=== PATIENT | male | born 1975 | race Caucasian/White ===

== ENCOUNTER → 2023-12-28 06:47 | Outpatient (REF) | payer MEDICARE, OTHER, SELFPAY | LOC: PAVMRI 06:47 | PROVIDERS: ATTENDING PHYSICIAN Orthopaedic Surgery; FAMILY PHYSICIAN Family Medicine | DX: M25.532 Pain in left wrist (principal) | CPT/HCPCS: 73221 ==

== ENCOUNTER 2024-01-24 14:53 | Outpatient (RCR) | payer MEDICARE, OTHER, SELFPAY | END 2024-01-24 23:59 | disposition home or self-care (01) | LOC: ROT 14:53 | PROVIDERS: ATTENDING PHYSICIAN Orthopaedic Surgery; FAMILY PHYSICIAN Registered Nurse | DX: S63.8X2D Sprain of other part of left wrist and hand, subsequent encounter (principal); Z73.6 Limitation of activities due to disability | CPT/HCPCS: 97018; 97110; 97166; 97535 ==

== ENCOUNTER 2024-03-01 13:42 | Inpatient (IN) | payer MEDICARE, OTHER, SELFPAY ==
[2024-03-01 11:17] VITALS: BP 130/83
[2024-03-01 12:22] VITALS: BMI 33.7
[2024-03-01 12:24] VITALS: BP 121/88
[2024-03-01 12:34] LABS: % Basophils 0.7 % (0-2); % Immature Granulocytes 0.9 % (0-0.5); % Lymphocytes 26.4 % (20.5-51.1); % Monocytes 9.1 % (1.7-9.3); % Neutrophils 60.9 % (42.2-75.2); Absolute Basophils 0.1 10^3/uL (0-0.2); Absolute Eosinophils 0.1 10^3/uL (0-0.7); Absolute Immature Granulocytes 0.1 10^3/uL (0-0.05); Absolute Lymphocytes 1.9 10^3/uL (1.2-3.4); Absolute Monocytes 0.6 10^3/uL (0.1-0.6); Absolute Neutrophils 4.3 10^3/uL (1.4-6.5); Hematocrit 38.6 % (39.0-52.0); Hemoglobin 13.6 g/dL (13.0-18.0); Mean Corp Hgb Conc. 35.2 g/dL (33.0-37.0); Mean Corpuscular Hgb 29.4 pg (27.0-31.0); Mean Corpuscular Volume 83.5 fL (80.0-94.0); Nucleated Red Blood Cells % 0 % (-); Platelet Count 271 10^3/uL (130-400); Red Blood Cell Count 4.62 10^6/uL (4.70-6.10); Red Cell Dist. Width 13.2 % (11.5-14.5)
[2024-03-01 12:46] LABS: Lactic Acid 2.5 mmol/L (0.7-2.0)
[2024-03-01 12:48] LABS: ALT (SGPT) 32 U/L (0-50); AST (SGOT) 35 U/L (17-59); Albumin 4.4 g/dl (3.5-5.0); Alkaline Phosphatase 85 U/L (38-126); Blood Urea Nitrogen 19 mg/dl (9-20); Calcium 9.9 mg/dl (8.4-10.2); Carbon Dioxide 26 mmol/L (22-30); Chloride 97 mmol/L (98-107); Estimated Creatinine Clearance > 125 ml/min; Glucose 278 mg/dl (70-99); Potassium 4.4 mmol/L (3.5-5.1); Sodium 133 mmol/L (135-145); Total Bilirubin 0.4 mg/dl (0.2-1.3); Total Protein 7.9 g/dl (6.3-8.2); eGFR > 60.00
--- NOTE | 2024-03-01 12:54 | ED.GENMED ---
History of Present Illness
General
Chief Complaint: Skin Problem
Source: patient and spouse
Exam Limitations: none
Time Seen by Provider: 03/01/24 12:23
Nursing documentation reviewed up to this point in time: agreed with
Travel History
Have you had any contact with someone who has COVID-19?: No
Do you have any symptoms of coronavirus? Fever > 100 degrees, chills, cough, shortness of breath, sore throat, loss of taste or smell, muscle aches, or headache?: No
History of Present Illness
History of Present Illness:
49-year-old male with history of diabetes presents to the emergency room with his for evaluation of right foot wound�he was referred by his outpatient podiatry for IV antibiotics with concern for diabetic foot wound infection. Patient reports
that on Wednesday he noticed a blister on the right side of his foot. He denies any known trauma or injury. He says that he saw his primary doctor on Wednesday who referred him to the accounts receivable associate to be evaluated. Today he saw the accounts receivable associate and he says
that the area was debrided and drained and he was referred to the emergency room for IV antibiotics. He denies any fevers or chills. He denies any pain in his foot. He has noticed some watery drainage around the dressing.
Past History
Past History
ED Past Medical History: Other (Seizures)
Social History
Tobacco: Non-smoker
Living: with family
Review of Systems
Review of Systems
All Other Systems: ROS reviewed and negative except as documented in HPI and ROS
Constitutional: Denies fever or chills
Skin: Reports other (Wound with surrounding redness and drainage)
Phy Exam
Physical Exam
Physical Exam:
General: Awake, alert, oriented x3; no acute distress
Head: Normocephalic, atraumatic
Eyes: Conjunctiva normal
Throat: Airway intact, handling secretions
Neck: Trachea midline, supple without meningismus
Lungs: Clear to auscultation bilaterally, no wheezing, rales, rhonchi
Heart: Regular rate and rhythm, no murmurs, gallops, or rubs
Abd: Soft, non distended, nontender
Neuro: Cranial nerves grossly intact, speech fluid
Extremities: Patient has a shallow-based ulceration on the plantar surface of the foot at the base of the fifth digit; he has wide area of surrounding erythema and mild tenderness; he has some slight watery drainage but no dina pus noted
Scores
Heart Failure Risk
Heart Failure Risk Score: Not Applicable
Heart Score for Chest Pain Patients
STEMI patient?: Not applicable
Withdrawal Assessment of Alcohol
Withdrawal Assessment Completed?: Not applicable
Course
Orders/Labs/Results
Orders:
Orders
03/01/24 12:19
Cardiac Monitoring- Treatment ONCE
IV Insert/Care/Rem.- Treatment PRN
O2 Therapy [RESP] Urgent
Titrate/Wean O2 to maintain O2 sat greater than (%): 93
Special Instructions: TO MAINTAIN CONTINUOUS O2 SATS > OR = 93%
Pulse Ox/cont/shift [RESP] Urgent
Quantity: 1
Special Instructions: CONTINUOUS
03/01/24 12:22
Complete Blood Count/With Diff Urgent
Comprehensive Metabolic Panel Urgent
Lactic Acid Q4H
Comment: ON ICE, CANCEL 2ND ORDER IF FIRST LACTIC ACID LEVEL <2
Blood Culture Q30M
PRITESH Source: Blood/Venous
Specimen Description:
Comment: FROM 2 SEPARATE SITES
03/01/24 12:45
CR Foot - Right Min 3 Views Urgent
Comment:
Reason For Exam: right foot wound infection
03/01/24 12:47
PODIATRY CONSULT Urgent
Consulting Provider: Brett Easton
Was physician already notified: Yes
Piperacillin/Tazo 3.375 Gram [Zosyn] 3.375 gram in 50 ml IV NOW
Vancomycin [Vancocin] 2,000 mg 0.9% Sodium Chloride 500 ml [Nss] 500 ml IV NOW
03/01/24 13:00
Blood Culture Q30M
PRITESH Source: Blood/Venous
Specimen Description:
Comment: FROM 2 SEPARATE SITES
03/01/24 16:30
Lactic Acid Q4H
Comment: ON ICE, CANCEL 2ND ORDER IF FIRST LACTIC ACID LEVEL <2
Abnormal Lab Results
03/01/24
12:22
RBC 4.62 L 10^6/uL
(4.70-6.10)
Hct 38.6 L %
(39.0-52.0)
Abs Immat Gran (auto) 0.1 H 10^3/uL
(0-0.05)
Immature Gran % 0.9 H %
(0-0.5)
Sodium 133 L mmol/L
(135-145)
Chloride 97 L mmol/L
(98-107)
Glucose 278 H mg/dl
(70-99)
Lactic Acid 2.5 H mmol/L
(0.7-2.0)
03/01/24 12:22
03/01/24 12:22
Vital Signs
Initial and Last Documented VS:
Initial Vital Signs
Temp Pulse Resp BP Pulse Ox
36.6 C 82 18 130/83 97
03/01/24 11:17 03/01/24 11:17 03/01/24 11:17 03/01/24 11:17 03/01/24 11:17
Last Documented Vital Signs
Temp Pulse Resp BP Pulse Ox
36.6 C 82 18 130/83 97
03/01/24 11:17 03/01/24 11:17 03/01/24 11:17 03/01/24 11:17 03/01/24 11:17
MDM/Problems Addressed
Differential Diagnosis Includes:
Foot infection: osteomyelitis, cellulitis
MDM/Problems Addressed:
49-year-old male presents for evaluation of foot wound infection�referred for IV antibiotics by his outpatient accounts receivable associate. Plan to place an IV send labs including CBC and CMP will send blood cultures. Check an x-ray of the foot. Monitor closely
reassess after the above.
Initial labs reviewed: CBC unremarkable, CMP shows hyperglycemia with a blood glucose of 278�no acidosis to suggest DKA. Will cover with IV antibiotics. Case discussed with podiatry and they will evaluate patient. Case discussed with hospitalist
for admission.
Chronic conditions affecting care:
Diabetes
Acute Exacerbation and/or Progression of Chronic Illness:
Acutely hyperglycemic
*Radiology
Radiology exam reviewed: radiology read reviewed
*Pulse Oximetry
Patient hypoxic: no
*Critical Care Note
Total Time (30-74mins, 75-104mins- exclusive of procedures): Not Applicable
Data Reviewed
Source: patient, records (Outpatient podiatry paperwork reviewed) and spouse
Patient Management
Discussion with other providers: Hospitalist (Discussed with hospitalist) and Rehab Trainer (Discussed with podiatry)
Escalation/DeEscalation of care consider admission/obs:
Admission indicated
ED Attending Note
-
Portions of this chart may have been created with voice recognition software.� Occasional wrong word or��sound alike� substitutions may have occurred due to the inherent limitations of voice recognition software.
Discharge Plan
Departure
Patient Disposition: Admit
Date of Disposition: 03/01/24
Time of Disposition: 12:54
Admit to doctor: Manuel
Presentation/result/management discussed w/ accepting MD/DO: Hospitalist
Discharge Problem:
Diabetic infection of right foot, Hyperglycemia
Prescriptions:
No Action
metformin 500 mg Tablet
500 mg PO BID
losartan 100 mg Tablet
100 mg PO DAILY
divalproex [Depakote ER] 500 mg Tablet Extended Release 24 Hr
1,000 mg PO BID
Depakote
prednisone 20 mg Tablet
20 mg PO DAILY Qty: 2 0RF
cephalexin 500 mg Capsule
500 mg PO QID 5 Days Qty: 20 0RF
glipizide 5 mg Tablet
5 mg PO DAILY Qty: 30 0RF
Interventions
Interventions:
*Risk Screen - Suicide Last Done: 03/01/24 11:17
*Neglect/Abuse Screening Last Done: 03/01/24 11:17
*ED COVID-19 Vaccine History Last Done: 03/01/24 11:17
Discharge Date and Time
Print Language: AZERI
[2024-03-01 13:00] VITALS: BP 134/82
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
[2024-03-01] MEDS: ZOSYN 50 IV ×3 (13:14→23:05)
[2024-03-01] MEDS: VANCOCIN 540 MG IV (13:58)
--- NOTE | 2024-03-01 14:57 | PHA.VAN.IN ---
Assessment
- Assessment
Renal Function: Appears similar to baseline
Concomitant Antimicrobials: piperacillin/tazobactam
AUC Dosing Plan
- Dosing Variables
Dosing Weight (kg): 122
Dosing CrCl (ml/min): 125
Vd coefficient (L/kg): 0.6
- Empiric Dosing
Initial / Loading Dose: 2000mg - 03/01 13:58
Maintenance Regimen: Vanc 1750mg Q12H starting 03/02 0600
Estimated AUC (mcg*h/mL): 478
Estimated Peak (mcg*h/mL): 32.9
Estimated Trough (mcg/ml): 10.6
Estimated Half Life (H): 6.4
anticipate patient may be slow to accumulate with BMI
- Monitoring
No levels ordered at this time: consider levels in next few days
Pharmacokinetics Vancomycin I
- -
Patient Age: 49
Patient Sex: Male
Vancomycin Day #: 1
Indication: Skin And Soft Tissue
Requesting Provider: Dr. Bernard
Pertinent Antimicrobial Allergies:
NKDA
Height / Weight:
Height 6 ft 3 in
Actual Weight 122.3 kg
Pertinent Past Medical History: BMI ~34< DM
- Vital Signs / Lab Results
Temp Pulse Resp BP Pulse Ox
97.8 F 67 17 134/82 97
03/01/24 11:17 03/01/24 13:00 03/01/24 13:00 03/01/24 13:00 03/01/24 13:00
Lab Results - Hematology
03/01/24
12:22
WBC 7.0
Lab Results - Chemistry
03/01/24
12:22
BUN 19
Creatinine 0.8
Estimated Creat Clear > 125
Albumin 4.4
03/01/24
12:22
Lactic Acid 2.5 H
[2024-03-01 15:00] VITALS: BP 160/86
[2024-03-01 15:16] VITALS: BMI 33.9
[2024-03-01 16:13] LABS: Glucose - Point of Care 133 mg/dl (70-99)
[2024-03-01 17:14] LABS: Lactic Acid 1.4 mmol/L (0.7-2.0)
[2024-03-01] MEDS: TYLENOL 650 MG PO ×3 (17:23→23:05)
[2024-03-01] MEDS: NSS 1000 IV (17:23)
[2024-03-01] MEDS: COZAAR 100 MG PO (17:23)
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
[2024-03-01] MEDS: NOVOLOG FLEXPEN-MODERATE RESISTANCE SC (17:25)
[2024-03-01 19:15] VITALS: BP 112/64
[2024-03-01 21:30] LABS: Glucose - Point of Care 230 mg/dl (70-99)
[2024-03-01] MEDS: DEPAKOTE ER (24 HR RELEASE) 1000 MG PO (21:30)
[2024-03-01 23:25] VITALS: BP 134/72
[2024-03-02] MEDS: TYLENOL PO (03:29)
[2024-03-02 03:36] VITALS: BP 132/65
[2024-03-02] MEDS: ZOSYN 50 IV ×4 (05:23→23:05)
[2024-03-02 06:03] LABS: % Basophils 0.7 % (0-2); % Eosinophils 2.9 % (0-6); % Immature Granulocytes 0.7 % (0-0.5); % Lymphocytes 41.3 % (20.5-51.1); % Monocytes 10.1 % (1.7-9.3); % Neutrophils 44.3 % (42.2-75.2); Absolute Basophils 0.1 10^3/uL (0-0.2); Absolute Eosinophils 0.2 10^3/uL (0-0.7); Absolute Immature Granulocytes 0.1 10^3/uL (0-0.05); Absolute Monocytes 0.7 10^3/uL (0.1-0.6); Absolute Neutrophils 3.2 10^3/uL (1.4-6.5); Hematocrit 34.7 % (39.0-52.0); Hemoglobin 12.4 g/dL (13.0-18.0); Mean Corp Hgb Conc. 35.7 g/dL (33.0-37.0); Mean Corpuscular Hgb 29.5 pg (27.0-31.0); Mean Corpuscular Volume 82.4 fL (80.0-94.0); Nucleated Red Blood Cells % 0 % (-); Platelet Count 238 10^3/uL (130-400); Red Blood Cell Count 4.21 10^6/uL (4.70-6.10); Red Cell Dist. Width 13.2 % (11.5-14.5); White Blood Cell Count 7.2 10^3/uL (4.8-10.8)
[2024-03-02] MEDS: VANCOCIN 535 MG IV ×2 (06:09→17:04)
[2024-03-02 06:29] LABS: Blood Urea Nitrogen 17 mg/dl (9-20); Calcium 9.4 mg/dl (8.4-10.2); Carbon Dioxide 24 mmol/L (22-30); Chloride 99 mmol/L (98-107); Estimated Creatinine Clearance > 125 ml/min; Glucose 155 mg/dl (70-99); Potassium 4.5 mmol/L (3.5-5.1); Sodium 134 mmol/L (135-145); eGFR > 60.00
[2024-03-02 07:26] LABS: Glucose - Point of Care 159 mg/dl (70-99)
[2024-03-02 07:44] VITALS: BP 130/71
[2024-03-02] MEDS: NOVOLOG FLEXPEN-MODERATE RESISTANCE 1 UNITS SC ×2 (08:02→12:43)
[2024-03-02] MEDS: JARDIANCE 10 MG PO (08:03)
[2024-03-02] MEDS: ZYLOPRIM 300 MG PO (08:03)
[2024-03-02] MEDS: TYLENOL 650 MG PO ×5 (08:03→23:05)
--- NOTE | 2024-03-02 08:04 | W.PN.HOSP.TC ---
Today's Communication/Plan
-
Continue IV antibiotics. Plan for MRI of the foot.
Assessment / Plan
Assessment / Plan
Physical exam:
General: Well Developed, Well Nourished and No Apparent Distress
HEENT: Normocephalic, Atraumatic and Moist Mucous Membranes
Respiratory: Clear to Auscultation; Negative Wheezes, Rales or Rhonchi
Cardiac: Regular Rhythm and S1/S2
GI: Soft, Nontender and Nondistended
Musculoskeletal: Shallow-based ulceration on the plantar surface of the foot at the base of the fifth digit; Lateral and surrounding this he has wide area of erythema and mild tenderness; he has some slight watery drainage. No Clubbing, No Cyanosis
and No Edema.
Neuro: Awake, Alert and Oriented
Psych: Calm
A/P:
Diabetic infected foot ulcer and Cellulitis:
-Continue IV Zosyn and vancomycin
-Follow-up blood cultures--> so far no growth
-Podiatry consult and follow-up appreciated
-Plan for MRI foot today
-WBC 7.2 today
History of gout:
-Continue allopurinol
Benign Hypertension:
�- Stable.� Blood pressure 130/71 today
-Continue losartan 100 mg daily.
Hyponatremia:
Na 134 today
Fluid restriction
Cont to monitor closely
Note he is on Depakote and losartan and naproxen.
DM-II:
-BS 159 this morning
-Cont diabetic diet
-Cont check blood sugars before meals and at bedtime
-Cont add insulin sliding scale
-Cont monitor blood sugar and adjust medications accordingly
-Will update hemoglobin A1c-->8.8
-Continue Jardiance 10 mg daily
-Cont hold metformin and can restart in next 24 hrs if no contrast used and renal function stable
Seizure Disorder:
�- Stable.� Last seizure activity was many years ago per patient.
�- Continue current Depakote dosing without changes.
DVT Prophylaxis:� Lovenox
Code Status:� Full
Anticipated Discharge: 24 - 48 hours
Subjective/Interval History
-
Date of Service: March 02, 2024
Patient denies any new complaints. Erythema improving on his foot. No nausea vomiting or diarrhea. Afebrile
Objective Data
-
Labs:
Laboratory Results
03/02/24
05:55
WBC 7.2
Hgb 12.4 L
Hct 34.7 L
Plt Count 238
Sodium 134 L
Potassium 4.5
Chloride 99
Carbon Dioxide 24
BUN 17
Creatinine 0.9
Glucose 155 H
Calcium 9.4
Vital Signs:
Vital Signs
Temp Pulse Resp BP Pulse Ox
97.7 F 48 16 130/71 95
03/02/24 07:44 03/02/24 07:44 03/02/24 07:44 03/02/24 07:44 03/02/24 07:44
I&O
03/01/24 03/02/24 03/03/24
06:59 06:59 06:59
Intake Total 1775 / 1775
Balance 1775 / 1775
Review of Systems
-
All other systems: Reviewed and negative
[2024-03-02 08:42] LABS: Glycohemoglobin (HgbA1c) 8.8 % (4.0-5.6)
--- NOTE | 2024-03-02 09:13 | PHA.VAN.FU ---
Vancomycin Assessment / Plan
- Assessment
Renal Function: Stable
WBC's are: WNL
In the past 24 hrs, patient has been: Afebrile
Concomitant Antimicrobials: piperacillin/tazobactam
- Dosing Plan
Continue: Vanc 1750mg Q12H
- Monitoring Plan
No level(s) ordered at this time: consider levels in next few days
Monitoring Comments: may be slow to accumulate with weight
- Follow Up
Pharmacy will continue to follow.
Vancomycin Follow UP
- -
Patient Age: 49
Patient Sex: Male
Vancomycin Day #: 2
Indication: Skin And Soft Tissue
Requesting Provider: Dr. Bernard
Pertinent Antimicrobial Allergies:
NKDA
Height / Weight:
Height 6 ft 2 in
Actual Weight 119.777 kg
Pertinent Past Medical History: BMI ~34< DM
- Vital Signs / Lab Results
Temp Pulse Resp BP Pulse Ox
97.7 F 48 16 130/71 95
03/02/24 07:44 03/02/24 07:44 03/02/24 07:44 03/02/24 07:44 03/02/24 07:44
Lab Results - Hematology
03/01/24 03/02/24
12: 05:55
WBC 7.0 7.2
Lab Results - Chemistry
03/01/24 03/02/24
12:22 05:55
BUN 19 17
Creatinine 0.8 0.9
Estimated Creat Clear > 125 > 125
Albumin 4.4
03/01/24 03/01/24
12:22 16:37
Lactic Acid 2.5 H 1.4
Microbiology Results
03/01/24 16:27 Gram Stain - Preliminary
Foot - Right
[2024-03-02] MEDS: NSS IV (10:29)
[2024-03-02 10:55] VITALS: BP 129/75
[2024-03-02 11:35] LABS: Glucose - Point of Care 183 mg/dl (70-99)
--- NOTE | 2024-03-02 11:46 | CM ---
Met with pt at bedside
Pt lives alone in a 2 story home
Independent, drives, works PT
DME - crutches in home
Has been to out pt PT at . Denies past snf/HH
Has ride home at d/c
PCP - Dr Yogesh Frausto
Pharm - [facility], [place]
Pending PT/OT eval
Plan - anticipate home with services vs out pt services
--- NOTE | 2024-03-02 12:31 | W.PN.POD ---
Today's Communication
Today's Communication
Pending Rt foot MRI
Assessment / Plan
-
Rt foot cellultis - resolving well.
Diabetic foot ulcer
Diabetic neuropathy.
Plan ; Cont IV Abx
Pending MRI of Rt foot
Discussed with patient about using diabetic inserts , strict BG maintenance and daily feet check etc
Following up with a industrial hygienist regularly .
Dry gauze dressing to Rt foot applied
PT can wt bear to Rt heel as tolerated
Podiatry will follow, no surgical intervention
Subjective
Chief Complaint
Rt diabetic foot infection, Diabetic foot ulcer Rt lateral foot
Subjective
Patient seen at bedside, doing well, no new complaints, no fever, chills. Well improved redness to Rt foot,
Objective
Temp Pulse Resp BP Pulse Ox
97.8 F 56 17 129/75 97
03/02/24 10:55 03/02/24 10:55 03/02/24 10:55 03/02/24 10:55 03/02/24 10:55
03/02/24 05:55
03/02/24 05:55
Vital Signs and Lab results were reviewed.
Intact pedal pulses b/l feet
Loss of protective sensation
Rt lateral foot submet 5th with resolved local erythema and resolved drainage, ulceration under submet head 5th with granular base, no necrosis, does not probe to deep tissues, no malodor noted, no necrosis noted.
Rt ankle with slight varus deformity noted
[2024-03-02 15:33] VITALS: BP 139/80
[2024-03-02 16:56] LABS: Glucose - Point of Care 132 mg/dl (70-99)
[2024-03-02] MEDS: NOVOLOG FLEXPEN-MODERATE RESISTANCE SC (17:03)
[2024-03-02] MEDS: COZAAR 100 MG PO (17:04)
[2024-03-02] MEDS: LOVENOX 40 MG SC (17:14)
[2024-03-02 19:10] VITALS: BP 147/85
[2024-03-02] MEDS: DEPAKOTE ER (24 HR RELEASE) 1000 MG PO (21:36)
[2024-03-02 21:42] LABS: Glucose - Point of Care 235 mg/dl (70-99)
[2024-03-02 23:32] VITALS: BP 153/84
[2024-03-03] MEDS: TYLENOL PO ×2 (02:43→23:07)
[2024-03-03 03:38] VITALS: BP 120/59
[2024-03-03] MEDS: ZOSYN 50 IV ×2 (05:35→12:15)
[2024-03-03 05:44] LABS: % Basophils 0.6 % (0-2); % Eosinophils 2.6 % (0-6); % Immature Granulocytes 0.6 % (0-0.5); % Lymphocytes 42.1 % (20.5-51.1); % Monocytes 9.6 % (1.7-9.3); % Neutrophils 44.5 % (42.2-75.2); Absolute Eosinophils 0.2 10^3/uL (0-0.7); Absolute Lymphocytes 2.9 10^3/uL (1.2-3.4); Absolute Monocytes 0.7 10^3/uL (0.1-0.6); Absolute Neutrophils 3.1 10^3/uL (1.4-6.5); Hemoglobin 12.6 g/dL (13.0-18.0); Mean Corpuscular Hgb 29.5 pg (27.0-31.0); Nucleated Red Blood Cells % 0 % (-); Platelet Count 222 10^3/uL (130-400); Red Blood Cell Count 4.27 10^6/uL (4.70-6.10); White Blood Cell Count 6.9 10^3/uL (4.8-10.8)
[2024-03-03] MEDS: VANCOCIN 535 MG IV (06:09)
[2024-03-03 06:46] LABS: Blood Urea Nitrogen 15 mg/dl (9-20); Calcium 9.3 mg/dl (8.4-10.2); Carbon Dioxide 23 mmol/L (22-30); Chloride 102 mmol/L (98-107); Estimated Creatinine Clearance > 125 ml/min; Glucose 121 mg/dl (70-99); Potassium 4.1 mmol/L (3.5-5.1); Sodium 133 mmol/L (135-145); eGFR > 60.00
--- NOTE | 2024-03-03 07:10 | W.PN.HOSP.TC ---
Today's Communication/Plan
-
cont abx as per ID
wound care as per orthopedic
glycemic control
Diabetic medications adjustment as per Diabetes [facility]AR[facility] MOVER
Assessment / Plan
Assessment / Plan
Physical exam:
General: Well Developed, Well Nourished and No Apparent Distress
HEENT: Normocephalic, Atraumatic and Moist Mucous Membranes
Respiratory: Clear to Auscultation; Negative Wheezes, Rales or Rhonchi
Cardiac: Regular Rhythm and S1/S2
GI: Soft, Nontender and Nondistended
Musculoskeletal: Shallow-based ulceration on the plantar surface of the foot at the base of the fifth digit; Lateral and surrounding this he has wide area of erythema and mild tenderness; he has some slight watery drainage. No Clubbing, No Cyanosis
and No Edema.
Neuro: Awake, Alert and Oriented
Psych: Calm
A/P:
Diabetic infected foot ulcer and Cellulitis:
Blood cx's NGTD
Wound Cx appreciated Group C strep
MRI appreciated no osteomyelitis
ID eval appreciated empiric vanc zosyn completed, cefuroxime started 500 mg PO BID x 10 more days
Podiatry Eval appreciated
-weight bearing to rt heel as toelrated with surgical shoe or cam boot
-Daily dressings w/ topical bactroban and dry gauze
History of gout:
-Continue allopurinol
Benign Hypertension:
�-Continue losartan 100 mg daily.
Hyponatremia:
Fluid restriction
Cont to monitor closely
Note he is on Depakote and losartan and naproxen.
stable 130s
DM-II:
Cont diabetic diet
sliding scale
A1c 8.8
Continue Jardiance 10 mg daily
Diabetes E[facility] M[facility] consult appreciated
-glipizide added
-metformin increased to 1000 mg BID
Seizure Disorder:
�- Stable.� Last seizure activity was many years ago per patient.
�- Continue current Depakote dosing without changes.
DVT Prophylaxis:� Lovenox
Code Status:� Full
I spent a total of 52 minutes with the patient or on the floor. More than 50% of this time involved counseling and coordination of care.
Anticipated Discharge: Within 24 hours
Subjective/Interval History
-
Date of Service: March 03, 2024
Seen and examined at bedside in no acute distress. reports feeling well.
Objective Data
-
Labs:
Laboratory Results
03/03/24
05:34
WBC 6.9
Hgb 12.6 L
Hct 35.0 L
Plt Count 222
Sodium 133 L
Potassium 4.1
Chloride 102
Carbon Dioxide 23
BUN 15
Creatinine 0.9
Glucose 121 H
Calcium 9.3
Vital Signs:
Vital Signs
Temp Pulse Resp BP Pulse Ox
97.9 F 56 18 120/59 99
03/03/24 03:38 03/03/24 03:38 03/03/24 03:38 03/03/24 03:38 03/03/24 03:38
I&O
03/02/24 03/03/24 03/04/24
06:59 06:59 06:59
Intake Total 1775 / 1775 940 / 940
Balance 1775 / 1775 940 / 940
[2024-03-03 07:30] VITALS: BP 132/65
[2024-03-03 07:47] LABS: Glucose - Point of Care 135 mg/dl (70-99)
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
[2024-03-03] MEDS: NOVOLOG FLEXPEN-MODERATE RESISTANCE SC ×2 (08:13→17:26)
[2024-03-03] MEDS: JARDIANCE 10 MG PO (08:15)
[2024-03-03] MEDS: TYLENOL 650 MG PO ×4 (08:16→21:52)
[2024-03-03] MEDS: ZYLOPRIM 300 MG PO (08:16)
--- NOTE | 2024-03-03 09:57 | PHA.VAN.FU ---
Vancomycin Assessment / Plan
- Assessment
Renal Function: Stable
WBC's are: WNL
In the past 24 hrs, patient has been: Afebrile
Concomitant Antimicrobials: Piperacillin/tazobactam
- Dosing Plan
Continue: vancomycin 1750 mg q12h - first dose 03/02 0600
- Monitoring Plan
Peak Level: 03/03/24 2130 - after 4th dose of 1750 mg
Trough Level: 03/04/24 0530
- Follow Up
Pharmacy will continue to follow.
Vancomycin Follow UP
- -
Patient Age: 49
Patient Sex: Male
Vancomycin Day #: 3
Indication: Skin And Soft Tissue
Requesting Provider: Dr. Bernard
Pertinent Antimicrobial Allergies:
NKDA
Height / Weight:
Height 6 ft 2 in
Actual Weight 119.777 kg
Pertinent Past Medical History: BMI ~34< DM
- Vital Signs / Lab Results
Temp Pulse Resp BP Pulse Ox
97.4 F 53 16 132/65 97
03/03/24 07:30 03/03/24 07:30 03/03/24 07:30 03/03/24 07:30 03/03/24 07:30
Lab Results - Hematology
03/01/24 03/02/24 03/03/24
12:22 05:55 05:34
WBC 7.0 7.2 6.9
Lab Results - Chemistry
03/01/24 03/02/24 03/03/24
12:22 05:55 05:34
BUN 19 17 15
Creatinine 0.8 0.9 0.9
Estimated Creat Clear > 125 > 125 > 125
Albumin 4.4
03/01/24 03/01/24
12:22 16:37
Lactic Acid 2.5 H 1.4
Microbiology Results
03/01/24 23:35 MRSA Screen - Final
Nose No Methicillin Resistant Staphylococcus aureus isolated.
03/01/24 13:13 Blood Culture - Preliminary
Blood/Venous No Growth in 24 hours- Final report to follow
03/01/24 16:27 Wound Culture - Preliminary
Foot - Right Group C Streptococcus
Gram Stain - Preliminary
03/01/24 12:22 Blood Culture - Preliminary
Blood/Venous No Growth in 24 hours- Final report to follow
[2024-03-03] MEDS: GLUCOTROL 5 MG PO (11:31)
[2024-03-03 11:50] LABS: Glucose - Point of Care 210 mg/dl (70-99)
[2024-03-03 12:00] VITALS: BP 124/83
[2024-03-03] MEDS: NOVOLOG FLEXPEN-MODERATE RESISTANCE 3 UNITS SC (12:27)
[2024-03-03] MEDS: GLUCOPHAGE 1000 MG PO ×2 (12:49→16:35)
--- NOTE | 2024-03-03 12:50 | CON.ID ---
Consultation
-
Date/Time Consultation Requested: 03/03/2024, 1038
Date/Time Consultation Performed: 03/03/2024. 1250
Requesting Provider: Dr. Aleks Wyman
Performing Provider: Dr. Lizz Shankar
Reason for Consultation: foot wound infection
Chief Complaint / Past History
Chief Complaint
Foot infection
History of Present Illness
49 year old male with DM2, hx gout, right ankle fusion who developed a blister on the side of his right foot several days ago. The blister opened and living a wound. He was placed on clindamycin without improvement. He saw his waiter/waitress room service who sent
him t the ED on 03/01. Pt reports there was redness and swelling around the wound. There was also clear drainage. No fevers or chills. He has been receiving Vanco and Zosyn. The redness has improved. Per nurse, the wound is now dry. He admits to his
diabetes not being under control.
Past History
Additional Past Medical History:
DM2
gout
seizure
HTN
Hx right ankle fusion with hardware
C4-C6 fusion
left RTC repair
Allergy History:
No Known Allergies Allergy (Verified 03/01/24 11:17)
Medications Reviewed: Yes
Current Antibiotics:
Vancomycin D3
Zosyn d3
Social History
Tobacco: Non-Smoker
Alcohol: None
Drug: None
Employment: Employed (Boxing project coach)
Family History
Family History: Not Pertinent
Review of Systems
Review of Systems
General: Negative Fever, Chills or Change in Appetite
HEENT: Negative Stiff Neck, Sinus Problems, Headache or Pharyngitis
Cardiovascular: Negative Chest Pain or Dyspnea
Respiratory: Negative Dyspnea or Cough
Gasteroenterology: Other (no diarrhea); Negative Nausea or Vomiting
Genital / Urological: Negative Dysuria or Flank Pain
Endocrine: Negative Weakness
Skin / Hair / Nails: Negative Rash
Neurological: Negative Headache or Dizziness
All systems: All other systems were reviewed and were negative
Vital Signs
Temp Pulse Resp BP Pulse Ox
98.3 F 63 16 124/83 100
03/03/24 12:00 03/03/24 12:00 03/03/24 12:00 03/03/24 12:00 03/03/24 12:00
Physical Exam
Physical Exam
Constitutional: No Acute Distress and Comfortable
Eyes: No Conjunctival Hemorrhage and Sclera Anicteric
Cardiovascular: Regular Rate and S1/S2
Pulmonary: Clear
Gastrointestinal: Soft, Non Tender, Non Distended and Normal Bowel Sounds
Genito-Urinary: Negative CVA Tenderness
Extremities: Pulses (strong pedal pulses); Negative Edema
Wound: Other (Plantar side of right 5th met head with shallow wound, no purulence, surrounding mild erythema receding from marked line.)
Neurological: AO x 3
Lab / Diagnostic Study Results
03/03/24 05:34
03/03/24 05:34
Abs Immat Gran (auto) 0.0 10^3/uL (0-0.05) 03/03/24 05:34
Absolute Neuts (auto) 3.1 10^3/uL (1.4-6.5) 03/03/24 05:34
Absolute Lymphs (auto) 2.9 10^3/uL (1.2-3.4) 03/03/24 05:34
Absolute Monos (auto) 0.7 10^3/uL (0.1-0.6) H 03/03/24 05:34
Absolute Basos (auto) 0.0 10^3/uL (0-0.2) 03/03/24 05:34
Immature Gran % 0.6 % (0-0.5) H 03/03/24 05:34
Neutrophils % 44.5 % (42.2-75.2) 03/03/24 05:34
Lymphocytes % 42.1 % (20.5-51.1) 03/03/24 05:34
Monocytes % 9.6 % (1.7-9.3) H 03/03/24 05:34
Eosinophils % 2.6 % (0-6) 03/03/24 05:34
Basophils % 0.6 % (0-2) 03/03/24 05:34
Lactic Acid 1.4 mmol/L (0.7-2.0) 03/01/24 16:37
Microbiology Results
Micro:
03/01/24 12:22 Blood Culture - Preliminary
Blood/Venous No Growth in 48 hours- Final report to follow
03/01/24 16:27 Wound Culture - Final
Foot - Right Group C Streptococcus
Gram Stain - Final
03/01/24 23:35 MRSA Screen - Final
Nose No Methicillin Resistant Staphylococcus aureus isolated.
03/01/24 13:13 Blood Culture - Preliminary
Blood/Venous No Growth in 24 hours- Final report to follow
03/02/24 MRI RLE: Small soft tissue defect within the plantar soft tissues adjacent to the fifth metatarsal head. There is no MR evidence for osteomyelitis.
Assessment / Plan
# Right foot diabetic ulcer with cellulitis
- MRI: no osteo/abscess
- Cellulitis improving
- DC Vanco/Zosyn
- Start cefuroxime 500mg po bid x 10 more days.
- Close follow-up with podiatry.
# DM2 uncontrolled
- Discussed importance of tight glucose control for overall health benefits.
--- NOTE | 2024-03-03 15:18 | CM ---
Addendum entered by Paola Marquez 03/03/24 16:25:
PT recs - HH
Pt had no preference - referral sent in care port to [facility]
Plan - home with [facility] when medically stable
Original Note:
CM following for d/c planning
Spoke with pt - meds now PO
Awaiting PT eval
Has no preference for Home care if needed
Plan - home - needs tbd
[2024-03-03 15:30] VITALS: BP 129/70
[2024-03-03 17:20] LABS: Glucose - Point of Care 101 mg/dl (70-99)
[2024-03-03] MEDS: COZAAR 100 MG PO (17:43)
[2024-03-03] MEDS: LOVENOX 40 MG SC (17:43)
--- NOTE | 2024-03-03 18:41 | W.PN.POD ---
Today's Communication
Today's Communication
Patient stable per podiatry to d/c home
Assessment / Plan
-
Rt foot cellultis - resolving well.
Diabetic foot ulcer
Diabetic neuropathy.
Plan ; Abx per ID
Reviewed MRI of Rt foot, no osteomyelitic changes , no fluid or any abscess collection
Discussed with patient about using diabetic inserts , strict BG maintenance and daily feet check etc
Following up with a retail customer service specialist regularly .
Dry gauze dressing to Rt foot applied
PT can wt bear to Rt heel as tolerated with surgical shoe or cam boot that he has at home
Patient can do daily dressings wit topical bactroban and dry gauze.
HE will follow up with Dr. Huff podiatry after discharge , next wk
Subjective
Chief Complaint
Rt diabetic foot infection, Diabetic foot ulcer Rt lateral foot
Subjective
Patient seen at bedside, doing well, no new complaints, no fever, chills. Well improved redness to Rt foot,
Objective
Temp Pulse Resp BP Pulse Ox
97.6 F 72 16 129/70 94
03/03/24 15:30 03/03/24 17:43 03/03/24 15:30 03/03/24 17:43 03/03/24 15:30
03/03/24 05:34
03/03/24 05:34
Vital Signs and Lab results were reviewed.
Intact pedal pulses b/l feet
Loss of protective sensation
Rt lateral foot submet 5th with resolved local erythema and resolved drainage, ulceration under submet head 5th with granular base, no necrosis, does not probe to deep tissues, no malodor noted, no necrosis noted.
Rt ankle with slight varus deformity noted
[2024-03-03 19:00] VITALS: BP 138/74
[2024-03-03] MEDS: BACTROBAN 2% OINTMENT 1 APPLIC TOPICAL (21:51)
[2024-03-03] MEDS: CEFTIN 500 MG PO (21:52)
[2024-03-03] MEDS: DEPAKOTE ER (24 HR RELEASE) 1000 MG PO (21:52)
[2024-03-03 22:04] LABS: Glucose - Point of Care 141 mg/dl (70-99)
[2024-03-03 23:00] VITALS: BP 147/81
[2024-03-04 03:00] VITALS: BP 139/81
[2024-03-04] MEDS: TYLENOL 650 MG PO ×3 (03:05→12:09)
--- NOTE | 2024-03-04 03:06 | PTCARENOTE ---
Pt complained of 8/10 pain throughout right elbow. Pt stated, 'sometimes this happens when I injure myself and my gout flares up'. See MAR. Will reassess.
--- NOTE | 2024-03-04 04:37 | PTCARENOTE ---
Pt complained of unrelieved pain throughout right elbow. Pt stated, 'heat usually helps'. SOCIAL SCIENCE MANAGER made aware, k pad ordered.
--- NOTE | 2024-03-04 07:17 | W.PN.HOSP.TC ---
Today's Communication/Plan
-
discharge
Assessment / Plan
Assessment / Plan
Physical exam:
General: Well Developed, Well Nourished and No Apparent Distress
HEENT: Normocephalic, Atraumatic and Moist Mucous Membranes
Respiratory: Clear to Auscultation; Negative Wheezes, Rales or Rhonchi
Cardiac: Regular Rhythm and S1/S2
GI: Soft, Nontender and Nondistended
Musculoskeletal: Shallow-based ulceration on the plantar surface of the foot at the base of the fifth digit; Lateral and surrounding this he has wide area of erythema and mild tenderness; he has some slight watery drainage. No Clubbing, No Cyanosis
and No Edema.
Neuro: Awake, Alert and Oriented
Psych: Calm
A/P:
Diabetic infected foot ulcer and Cellulitis:
Blood cx's NGTD
Wound Cx appreciated Group C strep
MRI appreciated no osteomyelitis
ID eval appreciated empiric vanc zosyn completed, cefuroxime started 500 mg PO BID x 10 more days
Podiatry Eval appreciated
-weight bearing to rt heel as toelrated with surgical shoe or cam boot
-Daily dressings w/ topical bactroban and dry gauze
History of gout:
-Continue allopurinol
Benign Hypertension:
�-Continue losartan 100 mg daily.
Hyponatremia:
Fluid restriction
Cont to monitor closely
Note he is on Depakote and losartan and naproxen.
stable 130s
DM-II:
Cont diabetic diet
sliding scale
A1c 8.8
Continue Jardiance 10 mg daily
Diabetes BOOT MAKER consult appreciated
-glipizide added
-metformin increased to 1000 mg BID
Seizure Disorder:
�- Stable.� Last seizure activity was many years ago per patient.
�- Continue current Depakote dosing without changes.
DVT Prophylaxis:� Lovenox
Code Status:� Full
Medically Stable for discharge home with home services and outpatient follow up recommendations.
Total Time Preparing Discharge ____50___ minutes including examination of the patient, summary of the hospital stay, instructions for continuing care to all relevant caregivers; and preparation of discharge records, prescriptions, and referral
forms if necessary.
Anticipated Discharge: Today
Subjective/Interval History
-
Date of Service: March 04, 2024
no acute distress reports feeling well. Denies new acute issues at this time. Eager to go home
Objective Data
-
Vital Signs:
Vital Signs
Temp Pulse Resp BP Pulse Ox
98.3 F 70 20 139/81 95
03/04/24 03:00 03/04/24 03:00 03/04/24 03:00 03/04/24 03:00 03/04/24 03:00
I&O
03/03/24 03/04/24 03/05/24
06:59 06:59 06:59
Intake Total 940 / 940 1280 / 1280
Balance 940 / 940 1280 / 1280
[2024-03-04 07:47] VITALS: BP 133/81
[2024-03-04 07:58] LABS: Glucose - Point of Care 119 mg/dl (70-99)
[2024-03-04] MEDS: GLUCOTROL 5 MG PO (08:02)
[2024-03-04] MEDS: JARDIANCE 10 MG PO (08:02)
[2024-03-04] MEDS: ZYLOPRIM 300 MG PO (08:02)
[2024-03-04] MEDS: GLUCOPHAGE 1000 MG PO (08:02)
[2024-03-04] MEDS: CEFTIN 500 MG PO (08:02)
[2024-03-04] MEDS: BACTROBAN 2% OINTMENT 1 APPLIC TOPICAL (08:03)
[2024-03-04] MEDS: NOVOLOG FLEXPEN-MODERATE RESISTANCE SC (08:03)
[2024-03-04 11:11] VITALS: BP 130/76
[2024-03-04 11:36] LABS: Glucose - Point of Care 154 mg/dl (70-99)
[2024-03-04] MEDS: NOVOLOG FLEXPEN-MODERATE RESISTANCE 1 UNITS SC (12:09)
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
--- NOTE | 2024-03-04 16:15 | CHAP ---
Extended visit with Donell, who is rooted in God and very devout. Emotional and spiritual support provided.
== END 2024-03-04 16:00 | disposition home health service (06) | DRG 638 ==
LOC: 3 WEST ACU 13:42
PROVIDERS: ADMITTING PHYSICIAN Hospitalist; ATTENDING PHYSICIAN Internal Medicine; CONSULT PHYSICIAN Internal Medicine Infectious Disease; EMERGENCY PHYSICIAN Emergency Medicine; FAMILY PHYSICIAN Family Medicine; OTHER PHYSICIAN Podiatrist Foot & Ankle Surgery
DX: E11.621 Type 2 diabetes mellitus with foot ulcer (principal); E87.1 Hypo-osmolality and hyponatremia; L03.115 Cellulitis of right lower limb; E11.65 Type 2 diabetes mellitus with hyperglycemia; L97.519 Non-pressure chronic ulcer of other part of right foot with unspecified severity; M10.9 Gout, unspecified; I10 Essential (primary) hypertension; E11.40 Type 2 diabetes mellitus with diabetic neuropathy, unspecified; R56.9 Unspecified convulsions; Z79.84 Long term (current) use of oral hypoglycemic drugs
CPT/HCPCS: 73630; 73720; 80048; 80053; 82962; 83036; 83605; 85025; 87040; 87070; 87077; 87147; 87205; 94760; 96365; 96367; 97116; 97162; 99285

== ENCOUNTER 2024-09-16 08:13 | Emergency (ER) | payer MEDICARE, OTHER, SELFPAY ==
[2024-09-16 08:16] VITALS: BP 153/88
--- NOTE | 2024-09-16 08:55 | ED.GENMED ---
History of Present Illness
General
Chief Complaint: Skin Problem
Source: patient
Time Seen by Provider: 09/16/24 08:47
History of Present Illness
History of Present Illness:
49-year-old male presents to the emergency room complaining of a wound on the bottom of his right foot. Patient has diabetes and has had significant diabetic wounds on his right foot. He required a long-term cast which was removed in July.
He followed up with the supervisor fine grading couple weeks ago and there was a callus which was debrided. He was placed in a walking boot. When he changed the dressing yesterday he noted white discoloration around the area she debrided was concerned he was
developing an infection or abscess. Patient denies any fever, chills, nausea or vomiting. He otherwise feels fine.
Past History
Past History
ED Past Medical History: Other (Seizures)
Social History
Tobacco: Non-smoker
Living: with family
Phy Exam
Physical Exam
Physical Exam:
General: Awake, Alert, Oriented X3. No acute distress.
Vitals: unremarkable
Head: Atraumatic
Eyes: Pupils equal, EOMI
Throat: Airway intact, no exudates
Neck: Trachea midline
Neuro: Grossly nonfocal
Skin: Warm, dry, no rash
Extremities: pulses equal b/l, no edema. Approximately nickel sized area of white discoloration noted over the distal fifth metatarsal right foot. Area with discoloration is quite hard and consistent with hypertrophic skin. Central to this lesion
is an area that appears to have been excoriated or debrided. There is no surrounding erythema. There is no purulent discharge.
Course
Orders/Labs/Results
Orders:
Orders
09/16/24 08:55
Foot, Right 3 View [CR Foot - Right Min 3 Views] Urgent
Comment:
Reason For Exam: plantar wound
09/16/24 09:04
Basic Metabolic Panel Urgent
Complete Blood Count/With Diff Urgent
Abnormal Lab Results
09/16/24
09:04
RBC 4.42 L 10^6/uL
(4.70-6.10)
Hct 37.5 L %
(39.0-52.0)
MCH 31.4 H pg
(27.0-31.0)
MCHC 37.1 H g/dL
(33.0-37.0)
Glucose 165 H mg/dl
(70-99)
09/16/24 09:04
09/16/24 09:04
Vital Signs
Initial and Last Documented VS:
Initial Vital Signs
Temp Pulse Resp BP Pulse Ox
98.3 F 73 16 153/88 96
09/16/24 08:16 09/16/24 08:16 09/16/24 08:16 09/16/24 08:16 09/16/24 08:16
Last Documented Vital Signs
Temp Pulse Resp BP Pulse Ox
98.3 F 73 16 153/88 96
09/16/24 08:16 09/16/24 08:16 09/16/24 08:16 09/16/24 08:16 09/16/24 08:16
MDM/Problems Addressed
Differential Diagnosis Includes:
Open wound, infection, cellulitis
MDM/Problems Addressed:
Patient presents with white discoloration around the wound on his foot that he was concerned might represent infection. On exam the area looks consistent with callus formation with central wound debrided in the middle. X-ray shows no bony
abnormality. Labs are unremarkable. I do believe the patient is experiencing a severe wound infection. Recommend topical antibiotics and podiatry follow-up.
*Radiology
Radiology exam reviewed: radiology read reviewed
*Pulse Oximetry
Patient hypoxic: no
*Critical Care Note
Total Time (30-74mins, 75-104mins- exclusive of procedures): Not Applicable
ED Attending Note
-
Portions of this chart may have been created with voice recognition software.� Occasional wrong word or��sound alike� substitutions may have occurred due to the inherent limitations of voice recognition software.
Discharge Plan
Departure
Patient Disposition: Home (Routine Discharge)
Date of Disposition: 09/16/24
Time of Disposition: 11:09
Patient with high blood pressure during this ER visit?: Yes
Condition: Good
Discharge Problem:
Wound of foot
Instructions: Wound Care (DC)
Prescriptions:
No Action
losartan 100 mg Tablet
100 mg PO QPM
divalproex [Depakote ER] 500 mg Tablet Extended Release 24 Hr
1,000 mg PO HS
allopurinol 300 mg tablet
300 mg PO DAILY
sildenafil (pulm.hypertension) 20 mg tablet
20 mg PO PRN PRN (Reason: sexual activity)
Jardiance 10 mg tablet
10 mg PO DAILY
cefuroxime axetil 500 mg Tablet
500 mg PO BID 9 Days Qty: 18 0RF
mupirocin 2 % Ointment
1 applic topical BID Qty: 50 0RF
metformin 1,000 mg Tablet
1,000 mg PO BID@0800,1700 30 Days Qty: 60 0RF
glipizide 5 mg Tablet
5 mg PO DAILY 30 Days Qty: 30 0RF
Referrals:
Josse Thakkar DO [Family Provider] -
Activity Restrictions/Additional Instructions:
Follow up with your poddiatrist. I do not believe antibiotics are indicated at this time.
Discharge Date and Time
Print Language: ESTONIAN
[2024-09-16 09:39] LABS: % Basophils 0.7 % (0-2); % Eosinophils 1.8 % (0-6); % Immature Granulocytes 0.3 % (0-0.5); % Lymphocytes 34.8 % (20.5-51.1); % Monocytes 8.2 % (1.7-9.3); % Neutrophils 54.2 % (42.2-75.2); Absolute Basophils 0.1 10^3/uL (0-0.2); Absolute Eosinophils 0.1 10^3/uL (0-0.7); Absolute Lymphocytes 2.5 10^3/uL (1.2-3.4); Absolute Monocytes 0.6 10^3/uL (0.1-0.6); Absolute Neutrophils 3.8 10^3/uL (1.4-6.5); Hematocrit 37.5 % (39.0-52.0); Hemoglobin 13.9 g/dL (13.0-18.0); Mean Corp Hgb Conc. 37.1 g/dL (33.0-37.0); Mean Corpuscular Hgb 31.4 pg (27.0-31.0); Mean Corpuscular Volume 84.8 fL (80.0-94.0); Mean Platelet Volume 10.4 fL (7.4-10.4); Nucleated Red Blood Cells % 0 % (-); Platelet Count 181 10^3/uL (130-400); Red Blood Cell Count 4.42 10^6/uL (4.70-6.10); Red Cell Dist. Width 13.1 % (11.5-14.5); White Blood Cell Count 7.1 10^3/uL (4.8-10.8)
[2024-09-16 09:53] LABS: Blood Urea Nitrogen 12 mg/dl (9-20); Calcium 9.5 mg/dl (8.4-10.2); Carbon Dioxide 26 mmol/L (22-30); Chloride 100 mmol/L (98-107); Glucose 165 mg/dl (70-99); Potassium 3.9 mmol/L (3.5-5.1); Sodium 139 mmol/L (135-145); eGFR > 60.00
[2024-09-16 15:45] VITALS: BP 145/79
== END 2024-09-16 11:15 | disposition home or self-care (01) ==
LOC: EMR 08:13
PROVIDERS: EMERGENCY PHYSICIAN Emergency Medicine; FAMILY PHYSICIAN Family Medicine
DX: S91.301A Unspecified open wound, right foot, initial encounter (principal); X58.XXXA Exposure to other specified factors, initial encounter; E11.9 Type 2 diabetes mellitus without complications; R03.0 Elevated blood-pressure reading, without diagnosis of hypertension
CPT/HCPCS: 99284; 73630; 80048; 85025

== ENCOUNTER 2024-11-27 14:57 | Outpatient (RCR) | payer MEDICARE, OTHER, SELFPAY | END 2024-11-27 23:59 | disposition home or self-care (01) | LOC: RPT 14:57 | PROVIDERS: ATTENDING PHYSICIAN Podiatrist | DX: Q66.71 Congenital pes cavus, right foot (principal); G90.09 Other idiopathic peripheral autonomic neuropathy; Z73.6 Limitation of activities due to disability; M79.671 Pain in right foot; R26.89 Other abnormalities of gait and mobility; E11.42 Type 2 diabetes mellitus with diabetic polyneuropathy; E11.621 Type 2 diabetes mellitus with foot ulcer; L97.519 Non-pressure chronic ulcer of other part of right foot with unspecified severity | CPT/HCPCS: 97110; 97112; 97163; 97530 ==

== ENCOUNTER 2024-12-21 16:53 | Outpatient (RCR) | payer MEDICARE, OTHER, SELFPAY | END 2024-12-21 23:59 | disposition home or self-care (01) | LOC: RPT 16:53 | PROVIDERS: ATTENDING PHYSICIAN Podiatrist | DX: Q66.71 Congenital pes cavus, right foot (principal); G90.09 Other idiopathic peripheral autonomic neuropathy; Z73.6 Limitation of activities due to disability; R26.2 Difficulty in walking, not elsewhere classified; M79.671 Pain in right foot; R26.89 Other abnormalities of gait and mobility; E11.42 Type 2 diabetes mellitus with diabetic polyneuropathy; E11.621 Type 2 diabetes mellitus with foot ulcer; L97.519 Non-pressure chronic ulcer of other part of right foot with unspecified severity | CPT/HCPCS: 97110; 97112 ==

== ENCOUNTER 2025-01-25 17:01 | Outpatient (RCR) | payer MEDICARE, OTHER, SELFPAY | END 2025-01-25 23:59 | disposition home or self-care (01) | LOC: RPT 17:01 | PROVIDERS: ATTENDING PHYSICIAN Podiatrist | DX: Q66.71 Congenital pes cavus, right foot (principal); Q66.70 Congenital pes cavus, unspecified foot (principal); G90.09 Other idiopathic peripheral autonomic neuropathy; Z73.6 Limitation of activities due to disability; M79.671 Pain in right foot; R26.89 Other abnormalities of gait and mobility; E11.42 Type 2 diabetes mellitus with diabetic polyneuropathy; E11.621 Type 2 diabetes mellitus with foot ulcer; L97.519 Non-pressure chronic ulcer of other part of right foot with unspecified severity | CPT/HCPCS: 97110; 97112; 97164 ==